=== PATIENT | male | born 1945 | race Caucasian/White ===

== ENCOUNTER 2017-12-06 13:45 | Emergency (ER) | payer MEDICARE ==
--- NOTE | 2017-12-06 15:02 | EDM.PDOC ---
ED HPI GENERAL MEDICAL PROBLEM - General Chief Complaint: Neurological Problem Stated Complaint: MEMORY LOSS Time Seen by Provider: 12/06/17 14:45 Source of Information: Reports: Patient, Family History Limitations: Reports: No Limitations - History of Present Illness INITIAL COMMENTS - FREE TEXT/NARRATIVE: 72-year-old male woke in the middle of the night last night and was having trouble discerning between reality in his dreams. He wasn't sure where he was although he knew he was at his brothers. Unfortunately today his symptoms have persisted, he is having trouble focusing his thoughts, is having memory loss, has lost his way around town which he knows well, has a very slight frontal pressure and slight balance issue. He did however go through his regular weight training this morning, has no visual problems, no aphasia or peripheral neurologic symptoms. Onset: Unknown/Unsure Severity: Mild Associated Symptoms: Reports: No Other Symptoms - Related Data Allergies Allergy/AdvReac Type Severity Reaction Status Date / Time No Known Allergies Allergy Verified 12/06/17 14:26 Home Meds: Home Meds Ascorbate Calcium [Vitamin C] 1 tab PO ASDIRECTED 12/06/17 [History] Body Building Supplement 1 tab PO ASDIRECTED 12/06/17 [History] Famotidine/Ca Carb/Mag Hydrox [Complete Tablet Chew] 1 tab PO ASDIRECTED [History] Ibuprofen 1 tab PO ASDIRECTED 12/06/17 [History] Licorice,Deglycyrrhizinated [Deglycyrrhizinated Licorice] 1 tab PO ASDIRECTED [History] Sodium Bicarbonate/Sodium Cit [Josefina-[place] Heartburn Tab Eff] 1 tab PO ASDIRECTED 12/06/17 [History] Tamsulosin [Flomax] 1 tab PO DAILY 12/06/17 [History] Testosterone Cypionate [Depo-Testosterone] 1 injection INJECT ASDIRECTED [History] Ubidecarenone [Co Q-10] 1 tab PO DAILY 12/06/17 [History] traMADol HCl [Tramadol HCl] 1 tab PO ASDIRECTED 12/06/17 [History] Past Medical History Cardiovascular History: Reports: Other (See Below) Gastrointestinal History: Reports: GERD Musculoskeletal History: Reports: Arthritis - Past Surgical History HEENT Surgical History: Reports: Tonsillectomy Cardiovascular Surgical History: Reports: AAA Repair, Valve Replacement GI Surgical History: Reports: Hernia, Inguinal Musculoskeletal Surgical History: Reports: Shoulder Surgery Social & Family History - Tobacco Use Smoking Status *Q: Never Smoker - Recreational Drug Use Recreational Drug Use: No ED ROS GENERAL - Review of Systems Review Of Systems: See Below Constitutional: Denies: Fever, Chills HEENT: Denies: Vision Change Respiratory: Denies: Shortness of Breath, Cough Cardiovascular: Denies: Chest Pain Endocrine: Denies: Fatigue GI/Abdominal: Denies: Abdominal Pain, Nausea, Vomiting : Reports: Other (Takes Flomax for BPH) Musculoskeletal: Reports: No Symptoms Skin: Reports: Other (Small irritated lesion on the right forearm, unknown if it 's bug bite or other issue. Noticed 4 days ago) ED EXAM, NEURO - Physical Exam Exam: See Below Exam Limited By: No Limitations General Appearance: Alert, No Apparent Distress Eye Exam: Bilateral Eye: Normal Inspection, PERRL Head Exam: Atraumatic Respiratory/Chest: No Respiratory Distress Neurological: Alert, Normal Mood/Affect, No Motor/Sensory Deficits, Oriented x 3 , Other (Romberg is negative, no pronator drift) DTR: 2+: Patella (R), Patella (L) Extremities: Other (Well-developed, no asymmetry) Skin Exam: Warm, Dry, Other (Patient is a 1 cm small red macular on the flexor surface of the right forearm) Course - Vital Signs Last Recorded V/S: Last Vital Signs Temp 97.9 F 12/06/17 14:26 Pulse 58 L 12/06/17 14:26 Resp 13 12/06/17 14:26 BP 117/62 12/06/17 14:26 Pulse Ox 98 12/06/17 14:26 - Orders/Labs/Meds Orders: Active Orders 24 hr Category Date Time Status Head wo Cont [CT] Stat Exams 12/06/17 14:57 Taken Labs: Laboratory Tests 12/06/17 12/06/17 Range/Units 14:57 14:57 WBC 8.3 (4.5-11.0) K/uL RBC 4.51 (4.30-5.90) M/uL Hgb 14.7 (12.0-15.0) g/dL Hct 42.9 (40.0-54.0) % MCV 95 (80-98) fL MCH 33 H (27-31) pg MCHC 34 (32-36) % Plt Count 168 (150-400) K/uL Neut % (Auto) 74 H (36-66) % Lymph % (Auto) 14 L (24-44) % [place] % (Auto) 10 H (2-6) % Eos % (Auto) 2 (2-4) % Baso % (Auto) 0 (0-1) % Sodium 131 L (140-148) mmol/L Potassium 4.2 (3.6-5.2) mmol/L Chloride 96 L (100-108) mmol/L Carbon Dioxide 31 (21-32) mmol/L Anion Gap 8.2 (5.0-14.0) mmol/L BUN 20 H (7-18) mg/dL Creatinine 1.5 H (0.8-1.3) mg/dL Est Cr Clr Drug Dosing 43.70 mL/min Estimated GFR (MDRD) 46 L (>60) Glucose 103 (74-106) mg/dL Calcium 9.1 (8.5-10.1) mg/dL Total Bilirubin 0.5 (0.2-1.0) mg/dL AST 42 H (15-37) U/L ALT 43 (12-78) U/L Alkaline Phosphatase 45 L (46-116) U/L Total Protein 6.3 L (6.4-8.2) g/dL Albumin 3.5 (3.4-5.0) g/dL Globulin 2.8 (2.3-3.5) g/dL Albumin/Globulin Ratio 1.2 (1.2-2.2) - Re-Assessments/Exams Free Text/Narrative Re-Assessment/Exam: 12/06/17 15:01 Patient is on a lot of vitamin and hormone type supplements including intramuscular testosterone. We discussed the possibility of transient global amnesia versus TIA versus small stroke. A CBC, CMP along with CT of the head without contrast is obtained. 12/06/17 15:52 CT of the head was normal. CBC and CMP were reassuring, he does have some renal insufficiency but this is been a diagnosis in the past. He wants to try to get a couple good night sleep and see if he improves. Departure - Departure Time of Disposition: 16:15 Disposition: Home, Self-Care 01 Condition: Good Clinical Impression: Transient global amnesia - Discharge Information Instructions: Transient Global Amnesia, Insomnia Referrals: PCP,None [Primary Care Provider] - Forms: ED Department Discharge Care Plan Goals: Continue your current medications and try something mild for a sleep aid. Recheck in 2-3 days if not improving satisfactorily, or return sooner if worsening. - My Orders Last 24 Hours: My Active Orders 12/06/17 14:57 Head wo Cont [CT] Stat - Assessment/Plan Last 24 Hours: My Active Orders 12/06/17 14:57 Head wo Cont [CT] Stat
== END 2017-12-06 16:15 | disposition home or self-care (01) ==
LOC: JP.ED 13:45
DX: G45.4 Transient global amnesia (principal); K21.9 Gastro-esophageal reflux disease without esophagitis; Z79.899 Other long term (current) drug therapy
CPT/HCPCS: 36415; 70450; 80053; 85025; 99283; 99284-25

== ENCOUNTER 2018-02-01 21:52 | Emergency (ER) | payer MEDICARE ==
--- NOTE | 2018-02-01 22:47 | EDM.PDOC ---
ED HPI GENERAL MEDICAL PROBLEM - General Chief Complaint: Skin Complaint Stated Complaint: INFECTION Time Seen by Provider: 02/01/18 22:42 Source of Information: Reports: Patient, Family, RN Notes Reviewed History Limitations: Reports: No Limitations - History of Present Illness INITIAL COMMENTS - FREE TEXT/NARRATIVE: 72-year-old gentleman presents emergency department today with concerns about his right hand, he was recently evaluated in the clinic today because increasing redness over digit #5 he was placed on Keflex 500 mg 3 times a day 7 days. His biggest concern is that he is at increased redness and swelling throughout most of the day right hand Pain Score (Numeric/FACES): 7 - Related Data Allergies Allergy/AdvReac Type Severity Reaction Status Date / Time No Known Allergies Allergy Verified 02/01/18 22:36 Home Meds: Home Meds Ascorbate Calcium [Vitamin C] 1 tab PO ASDIRECTED 12/06/17 [History] Body Building Supplement 1 tab PO ASDIRECTED 12/06/17 [History] Famotidine/Ca Carb/Mag Hydrox [Complete Tablet Chew] 1 tab PO ASDIRECTED [History] Ibuprofen 1 tab PO ASDIRECTED 12/06/17 [History] Licorice,Deglycyrrhizinated [Deglycyrrhizinated Licorice] 1 tab PO ASDIRECTED [History] Sodium Bicarbonate/Sodium Cit [Josefina-[place] Heartburn Tab Eff] 1 tab PO ASDIRECTED 12/06/17 [History] Tamsulosin [Flomax] 1 tab PO DAILY 12/06/17 [History] Testosterone Cypionate [Depo-Testosterone] 1 injection INJECT ASDIRECTED [History] Ubidecarenone [Co Q-10] 1 tab PO DAILY 12/06/17 [History] traMADol HCl [Tramadol HCl] 1 tab PO ASDIRECTED 12/06/17 [History] cephALEXin [Cephalexin] 1 tab PO TID 02/01/18 [History] Past Medical History Gastrointestinal History: Reports: GERD Musculoskeletal History: Reports: Arthritis - Past Surgical History HEENT Surgical History: Reports: Tonsillectomy Cardiovascular Surgical History: Reports: AAA Repair, Valve Replacement GI Surgical History: Reports: Hernia, Inguinal Musculoskeletal Surgical History: Reports: Shoulder Surgery Social & Family History - Tobacco Use Smoking Status *Q: Never Smoker ED ROS GENERAL - Review of Systems Review Of Systems: See Below Constitutional: Denies: Fever, Chills Respiratory: Reports: No Symptoms Cardiovascular: Reports: No Symptoms Skin: Reports: Rash, Erythema, Change in Color ED EXAM, SKIN/RASH Exam: See Below Text/Narrative:: Examination of the right hand shows erythema encompassing digits to 3 as well as the dorsal surface is warm to the touch digits #5 it is edematous radial pulse is +2 Exam Limited By: No Limitations General Appearance: Alert, WD/WN, No Apparent Distress Respiratory/Chest: No Respiratory Distress Course - Vital Signs Last Recorded V/S: Last Vital Signs Temp 96.6 F 02/01/18 22:41 Pulse 63 02/01/18 22:41 Resp 16 02/01/18 22:41 BP 139/72 02/01/18 22:41 Pulse Ox 96 02/01/18 22:41 - Orders/Labs/Meds Orders: Active Orders 24 hr Category Date Time Status Lidocaine 1% [Xylocaine-MPF 1%] Med 02/01/18 23:39 Once 5 ml INJECT ONETIME ONE Medication Orders Lidocaine HCl (Xylocaine-Mpf 1%) 5 ml INJECT ONETIME ONE Stop: 02/01/18 23:40 Labs: Laboratory Tests 02/01/18 02/01/18 02/01/18 Range/Units 22:05 22:05 22:50 WBC 9.1 (4.5-11.0) K/uL RBC 4.65 (4.30-5.90) M/uL Hgb 15.4 H (12.0-15.0) g/dL Hct 43.5 (40.0-54.0) % MCV 94 (80-98) fL MCH 33 H (27-31) pg MCHC 35 (32-36) % Plt Count 179 (150-400) K/uL Neut % (Auto) 68 H (36-66) % Lymph % (Auto) 15 L (24-44) % [place] % (Auto) 13 H (2-6) % Eos % (Auto) 5 H (2-4) % Baso % (Auto) 1 (0-1) % Sodium 133 L (140-148) mmol/L Potassium 4.3 (3.6-5.2) mmol/L Chloride 98 L (100-108) mmol/L Carbon Dioxide 31 (21-32) mmol/L Anion Gap 8.3 (5.0-14.0) mmol/L BUN 16 (7-18) mg/dL Creatinine 1.2 (0.8-1.3) mg/dL Est Cr Clr Drug Dosing 54.63 mL/min Estimated GFR (MDRD) 60 (>60) Glucose 109 H (74-106) mg/dL Lactic Acid 0.7 (0.4-2.0) mmol/L Calcium 9.0 (8.5-10.1) mg/dL Total Bilirubin 0.4 (0.2-1.0) mg/dL AST 39 H (15-37) U/L ALT 43 (12-78) U/L Alkaline Phosphatase 58 (46-116) U/L C-Reactive Protein 0.39 H (0.0-0.3) mg/dL Total Protein 6.4 (6.4-8.2) g/dL Albumin 3.5 (3.4-5.0) g/dL Globulin 2.9 (2.3-3.5) g/dL Albumin/Globulin Ratio 1.2 (1.2-2.2) Meds: Medications Generic Name Dose Route Start Last Admin Trade Name Freq PRN Reason Stop Dose Admin Lidocaine HCl 5 ml 02/01/18 23:39 Xylocaine-Mpf 1% INJECT 02/01/18 23:40 ONETIME ONE Discontinued Medications Generic Name Dose Route Start Last Admin Trade Name Freq PRN Reason Stop Dose Admin Ceftriaxone Sodium 1 gm 02/01/18 23:20 02/01/18 23:38 Rocephin IM 02/01/18 23:21 1 gm ONETIME ONE Administration Departure - Departure Time of Disposition: 23:40 Disposition: Home, Self-Care 01 Condition: Good Clinical Impression: Cellulitis of hand, right - Discharge Information Referrals: PCP,None [Primary Care Provider] - Forms: ED Department Discharge Additional Instructions: Continue with Keflex already started, Please followup with your primary care provider in 5-7 days if not better, please call return to the emergency department with worsening of symptoms. - My Orders Last 24 Hours: My Active Orders 02/01/18 23:39 Lidocaine 1% [Xylocaine-MPF 1%] 5 ml INJECT ONETIME ONE - Assessment/Plan Last 24 Hours: My Active Orders 02/01/18 23:39 Lidocaine 1% [Xylocaine-MPF 1%] 5 ml INJECT ONETIME ONE Plan: Assessment Acuity = acute Site and laterality = cellulitis right hand Etiology = probable bacterial cause Manifestations = none Location of injury = Home Lab values = CBC unremarkable, sodium low at 133 consistent hyponatremia CRP mildly elevated 0.39 lactic acid normal at 0.7 Plan He was given 1 g dose Rocephin IM 1 continue with Keflex continue follow-up with primary care 5-7 days if no improvement This note was dictated using [employer]RIKA voice recognition software please call with any questions on syntax or grammar.
[2018-02-01] MEDS ORDERED: cefTRIAXone 1 GM Vial IM ONE (23:20)
== END 2018-02-01 23:54 | disposition home or self-care (01) ==
LOC: JP.ED 21:52
DX: L03.113 Cellulitis of right upper limb (principal); Z79.899 Other long term (current) drug therapy
CPT/HCPCS: 36415; 80053; 83605; 85025; 86140; 96372; 99284; J0696

== ENCOUNTER 2023-12-18 08:55 | Emergency (ER) | payer MEDICARE, BC ==
[2023-12-18] MEDS: Sodium Chloride 0.9% 1,000 ML IV SCH (09:16)
[2023-12-18 09:18] LABS: BASOPHILS ABSOLUTE AUTO 0.04 K/uL (0.00-0.10); BASOPHILS PERCENT AUTO 0.9 % (0.1-1.3); BICARBONATE,VENOUS 23.4 mmol/L; CARBOXYHEMOGLOBIN 2.6 % (0.0-1.6); EOSINOPHILS ABSOLUTE AUTO 0.18 K/uL (0.00-0.40); HEMATOCRIT 37.7 % (38.4-49.7); HEMOGLOBIN 13.3 g/dL (12.9-16.9); IMMATURE GRAN PERCENT AUTO 0.4 % (0.0-0.7); LYMPHOCYTES ABSOLUTE AUTO 0.97 K/uL (0.8-3.3); LYMPHOCYTES PERCENT AUTO 21.6 % (11.4-47.7); MEAN CORPUSCULAR HEMOGLOBIN 32.3 pg (31.6-35.5); MEAN CORPUSCULAR HGB CONC 35.3 g/dL (31.6-35.5); MEAN CORPUSCULAR VOLUME 91.5 fL (81.4-99.0); METHEMOGLOBIN 0.8 %; MONOCYTES ABSOLUTE AUTO 0.42 K/uL (0.20-0.90); MONOCYTES PERCENT AUTO 9.4 % (3.3-12.6); NEUTROPHILS ABSOLUTE AUTO 2.86 K/uL (1.0-7.6); NEUTROPHILS PERCENT AUTO 63.7 % (40.0-78.1); O2 SATURATION VENOUS 80.9; OXYHEMOGLOBIN 78.1 %; PCO2 VENOUS 40.5 mm/Hg; PH,VENOUS 7.381 (7.350-7.450); PLATELET COUNT,PLT 129 K/uL (130-375); PO2 VENOUS 48.4 mm/Hg; RED BLOOD CELL COUNT 4.12 M/uL (4.14-5.76); WHITE BLOOD CELL COUNT,WBC 4.5 K/uL (3.2-11.0)
[2023-12-18 09:26] LABS: IMMATURE GRAN ABSOLUTE AUTO 0.02 K/uL (0.00-0.23)
[2023-12-18 09:45] LABS: A/G RATIO 1.1 (1.2-2.2); ALANINE AMINOTRANSFERASE,ALT 23 U/L (12-78); ALBUMIN 3.2 g/dL (3.4-5.0); ALKALINE PHOSPHATASE 61 U/L (46-116); ASPARTATE AMNIOTRANSFERASE,AST 18 U/L (15-37); BILIRUBIN TOTAL 0.6 mg/dL (0.2-1.0); BLOOD UREA NITROGEN,BUN 20 mg/dL (7-18); CALCIUM 8.7 mg/dL (8.5-10.1); CARBON DIOXIDE,CO2 26 mmol/L (21-32); CHLORIDE,CL 106 mmol/L (100-108); CREATININE 1.2 mg/dL (0.8-1.3); EST CRCL DRUG DOSING (CG) 49.88 mL/min; ESTIMATED GFR 62 mL/min (>60); GLUCOSE RANDOM 86 mg/dL (74-106); POTASSIUM,K 4.3 mmol/L (3.6-5.2); SODIUM,NA 139 mmol/L (140-148); TROPONIN I HIGH SENSITIVITY 7.6 pg/mL (<=60.3)
[2023-12-18 09:48] LABS: ANION GAP 11.3 mmol/L (5.0-14.0)
[2023-12-18 10:02] LABS: APPEARANCE,URINE CLEAR (CLEAR); BILIRUBIN,URINE NEGATIVE (NEGATIVE); COLOR,URINE YELLOW (YELLOW); GLUCOSE,URINE NEGATIVE (NEGATIVE); KETONES,URINE NEGATIVE (NEGATIVE); LEUKOCYTE ESTERASE,URINE NEGATIVE (NEGATIVE); NITRITE,URINE NEGATIVE (NEGATIVE); OCCULT BLOOD,URINE NEGATIVE (NEGATIVE); PH,URINE 5.5 (5.0-8.0); PROTEIN,URINE NEGATIVE (NEGATIVE); UROBILINOGEN,URINE 0.2 EU/dL (0.2-1.0)
[2023-12-18 10:07] LABS: AMPHETAMINES SCREEN, URINE NEGATIVE (NEGATIVE); BARBITURATE SCREEN,URINE NEGATIVE (NEGATIVE); BENZODIAZEPINES SCREEN,URINE NEGATIVE (NEGATIVE); METHADONE SCREEN, URINE NEGATIVE (NEGATIVE); METHAMPHETAMINES SCREEN, URINE NEGATIVE (NEGATIVE); OXYCODONE SCREEN,URINE NEGATIVE (NEGATIVE); PROPOXYPHENE SCREEN,URINE NEGATIVE (NEGATIVE); THC SCREEN,URINE 50 NG/ML NEGATIVE (NEGATIVE)
[2023-12-18 10:07] LABS: CORONAVIRUS COVID-19 NAA NEGATIVE (NEGATIVE); INFLUENZA A NAA NEGATIVE (NEGATIVE); INFLUENZA B NAA NEGATIVE (NEGATIVE); RESPIRATORY SYNCYTIAL VIR NAA NEGATIVE (NEGATIVE)
[2023-12-18 10:08] LABS: AMORPHOUS SEDIMENT,URINE RARE; BACTERIA,URINE NOT SEEN; EPITHELIAL CELLS,URINE NOT SEEN; MUCUS,URINE NOT SEEN; RBC,URINE NOT SEEN (0-5); WBC,URINE NOT SEEN (0-5)
[2023-12-18] MEDS ORDERED: levETIRAcetam 500 MG/5 ML Solution ML 473 ml Bottle PO ONE (10:15)
[2023-12-18] MEDS: levETIRAcetam 250 MG Tab PO ONE (10:24)
== END 2023-12-18 13:39 | disposition home or self-care (01) ==
LOC: JP.ED 08:55
DX: G40.409 Other generalized epilepsy and epileptic syndromes, not intractable, without status epilepticus (principal); Z79.899 Other long term (current) drug therapy
CPT/HCPCS: 0241U; 36415; 70450; 70450-26; 71045; 71045-26; 80053; 80305-QW; 80307; 81001; 82803; 83605; 84145; 84484; 85025; 87040; 93005; 96361; 96374; 99285-25; A9270-GY; C1758; J3360; J7030